=== PATIENT | male | born 1950 | race Hispanic/Latino ===

== ENCOUNTER 2019-09-07 01:42 | Inpatient (IN) | payer OTHER ==
[~2019-09-07] VITALS: Ht 177.8 cm; Wt 116.4 kg
[2019-09-07] VITALS (31 sets, daily range): BP systolic 90–130; BP diastolic 38–96
[2019-09-07] MEDS ORDERED: NITROGLYCERIN 2 MG/VIAL VIAL IV ONE (02:00)
[2019-09-07] MEDS ORDERED: ATROPINE SULFATE 0.1 MG/ML 10 ML SYG IVP ONE (02:00)
[2019-09-07] MEDS ORDERED: IOHEXOL-350 50ML VIAL IV ONE (02:00)
[2019-09-07] MEDS ORDERED: HEPARIN SODIUM 1000UNIT/ML 10ML VIAL ONE (02:00)
[2019-09-07] MEDS ORDERED: SODIUM BICARB 50MEQ 50ML VIAL ONE (02:00)
[2019-09-07] MEDS ORDERED: IOHEXOL 350 MG/ML 100ML INFUS..BTL IV ONE (02:01)
[2019-09-07] MEDS ORDERED: LIDOCAINE HCL 2% 20ML ONE (02:01)
[2019-09-07] MEDS ORDERED: DOPAMINE HCL 400 MG/D5%-WATER 0 ML IV ONE (02:01)
[2019-09-07] MEDS ORDERED: NOREPINEPHRINE BITARTRATE 1 MG/1 ML ML IV ONE (03:01)
[2019-09-07 03:13] LABS: ABG BASE EXCESS -6.1 mmol/L (-2.0-3.0); ABG HCO3 20.3 mmol/L (21.0-28.0); ABG OXYGEN SATURATION 98.9 % (95.0-99.0); ABG PCO2 44 mmHg (35-48)
[2019-09-07] MEDS ORDERED: CLOPIDOGREL BISULFATE 300 MG TAB ONE (03:22)
[2019-09-07] MEDS ORDERED: NOREPINEPHRINE 4MG/NS 250ML 250 ML IV PRN (03:45)
--- NOTE | 2019-09-07 04:40 | NUR ---
ADMIT 0410 RECEIVED REPORT FROM DENNY WRIGHT RN FROM [facility] 0440 PT ADMIT RM 215 O2 2LNS ON LEVOPHED AT 0.05 MCG/KG/MIN PT IN NO APPARENT DISTRESS AT THIS TIME HOSPITALIST [facility] WEEKS AT BEDSIDE ASSESSING PT. NEW ORDERS INPUT INTO SYSTEM. ADMISSION DATABASE COMPLETE. DAUGHTER CHRISTIAN BROWN AT BEDSIDE. WILL CONTINUE TO MONITOR PT.
[2019-09-07] MEDS ORDERED: MORPHINE SULFATE 2 MG/ML 1ML SYG IVP PRN (05:15)
[2019-09-07] MEDS ORDERED: ONDANSETRON HCL 4 MG/2 ML VIAL IVP PRN (05:15)
[2019-09-07] MEDS: INSULIN HUMULIN R 100 UNIT/ML 3ML SQ SCH ×3 (06:00→16:36)
[2019-09-07 06:03] LABS: BASOPHILS % (AUTO) 0.5 % (0.0-5.0); EOSINOPHILS % (AUTO) 0.3 % (0.0-8.0); HEMATOCRIT 35.7 % (42-54); LYMPHOCYTES % (AUTO) 8.6 % (21.0-51.0); MEAN CORPUSCULAR HEMOGLOBIN 27.6 pg (27.0-33.0); MEAN CORPUSCULAR HGB CONC 31.7 g/dL (32.0-36.0); MEAN CORPUSCULAR VOLUME 87.1 fL (79-99); MONOCYTES % (AUTO) 4.4 % (3.0-13.0); NEUTROPHILS % (AUTO) 85.8 % (40.0-77.0); PLATELET COUNT (AUTO) 178 K/uL (130-400)
[2019-09-07] MEDS: SODIUM CHLORIDE 0.9% 1000ML 1,000 ML IV SCH ×2 (06:13→14:54)
[2019-09-07 06:21] LABS: INR 1.18 (0.85-1.15); PARTIAL THROMBOPLASTIN TIME 57.8 SEC (26.3-35.5); PROTHROMBIN TIME 12.7 SEC (9.6-11.6)
[2019-09-07 06:22] LABS: CREATININE 2.1 mg/dL (0.5-1.5); POTASSIUM 4.3 mmol/L (3.5-5.1)
[2019-09-07] MEDS: CLOPIDOGREL BISULFATE 75 MG TAB PO SCH ×2 (08:07→08:10)
[2019-09-07] MEDS: ASPIRIN 81MG TAB.CHEW PO SCH (08:07)
[2019-09-07] MEDS: METOPROLOL TARTRATE 25 MG TAB PO SCH ×2 (08:07→21:23)
[2019-09-07] MEDS ORDERED: MAG HYDROX/AL HYDROX/SIMETH ES 30 ML SUSP UDCUP PO PRN (08:45)
[2019-09-07] MEDS: LACTULOSE 20 GM/30 ML UDCUP PO PRN ×2 (11:48→18:06)
[2019-09-07 15:16] LABS: APPEARANCE,URINE Clear (CLEAR); BILIRUBIN,URINE Negative (NEGATIVE); COLOR,URINE Yellow (YELLOW); GLUCOSE, URINE (UA) Negative (NEGATIVE); KETONES,URINE Negative (NEGATIVE); LEUKOCYTE ESTERASE ,URINE Trace (NEGATIVE); NITRATE,URINE Negative (NEGATIVE); OCCULT BLOOD,URINE Small (NEGATIVE); PH,URINE 5.5 (5.0-8.0); PROTEIN,URINE Trace mg/dL (NEGATIVE)
[2019-09-07 15:20] LABS: CREATININE,URINE RANDOM 130 mg/dL (30-135); PROTEIN,URINE RANDOM 30.6 mg/dL (0-11.9)
[2019-09-07 15:23] LABS: RBC,URINE 0-1 /HPF (0-1)
[2019-09-07 15:24] LABS: BACTERIA,URINE Rare /HPF (None Seen); SQUAMOUS EPITHELIAL CELL,UR Few /HPF (0-2)
[2019-09-07] MEDS: DOCUSATE SODIUM 100 MG CAP PO SCH (15:44)
[2019-09-07 18:23] LABS: TROPONIN I 94.55 ng/mL (0.00-0.06)
[2019-09-07] MEDS ORDERED: TAMS-1 PO (19:00)
[2019-09-07] MEDS ORDERED: ATOR10TA69 PO (19:00)
[2019-09-07] MEDS ORDERED: TRAM100T40 PO (19:00)
[2019-09-07] MEDS ORDERED: LIRA0.6P SQ (19:00)
[2019-09-07] MEDS ORDERED: AMLO1CAP2 PO (19:00)
[2019-09-07] MEDS ORDERED: ASPI-1197 PO (19:00)
[2019-09-07] MEDS ORDERED: INSLAN SQ (19:00)
[2019-09-07] MEDS: ATORVASTATIN CALCIUM 40 MG TABLET PO SCH (21:20)
[2019-09-08] VITALS (17 sets, daily range): BP systolic 103–140; BP diastolic 62–92
[2019-09-08] MEDS: SODIUM CHLORIDE 0.9% 1000ML 1,000 ML IV SCH (00:35)
[2019-09-08 03:54] LABS: BASOPHILS % (AUTO) 0.6 % (0.0-5.0); EOSINOPHILS % (AUTO) 1.3 % (0.0-8.0); HEMATOCRIT 32.1 % (42-54); LYMPHOCYTES % (AUTO) 14.2 % (21.0-51.0); MEAN CORPUSCULAR HEMOGLOBIN 28.2 pg (27.0-33.0); MEAN CORPUSCULAR HGB CONC 31.2 g/dL (32.0-36.0); MEAN CORPUSCULAR VOLUME 90.7 fL (79-99); MONOCYTES % (AUTO) 8.6 % (3.0-13.0); PLATELET COUNT (AUTO) 142 K/uL (130-400); RED BLOOD CELL COUNT(AUTO) 3.54 MIL/uL (4.50-6.20); RED CELL DISTRIBUTION WIDTH 15.2 % (11.0-15.5); WHITE BLOOD COUNT (AUTO) 11.9 K/uL (4.8-10.8)
[2019-09-08 04:19] LABS: B-TYPE NATRIURETIC PEPTIDE 343 pg/mL (0-100)
[2019-09-08 04:33] LABS: CREATININE 1.7 mg/dL (0.5-1.5); MAGNESIUM 2.1 mg/dL (1.80-2.40); PHOSPHORUS 3.3 mg/dL (2.5-4.9); POTASSIUM 3.9 mmol/L (3.5-5.1); THYROID STIMULATING HORMONE 0.5 uIU/mL (0.36-3.74)
[2019-09-08 04:41] LABS: HEMOGLOBIN A1C 6.7 % (4.0-6.0)
[2019-09-08] MEDS: INSULIN HUMULIN R 100 UNIT/ML 3ML SQ SCH ×5 (06:00→21:00)
[2019-09-08 07:42] LABS: ABG BASE EXCESS -3.1 mmol/L (-2.0-3.0); ABG OXYGEN SATURATION 93.3 % (95.0-99.0); ABG PCO2 31 mmHg (35-48)
[2019-09-08] MEDS: DOCUSATE SODIUM 100 MG CAP PO SCH (07:53)
[2019-09-08] MEDS: CLOPIDOGREL BISULFATE 75 MG TAB PO SCH (08:32)
[2019-09-08] MEDS: METOPROLOL TARTRATE 25 MG TAB PO SCH ×2 (08:32→20:57)
[2019-09-08] MEDS: ASPIRIN 81MG TAB.CHEW PO SCH (08:33)
[2019-09-08 09:48] LABS: TROPONIN I 57.95 ng/mL (0.00-0.06)
[2019-09-08] MEDS ORDERED: SODIUM CHLORIDE 0.9% 1000ML 1,000 ML IV ONE (11:03)
--- NOTE | 2019-09-08 14:48 | NUR ---
Report for transfer to P[facility]U Report to otf [facility] nurse for pt transfer to PCCU rm 417. All questions answered.
--- NOTE | 2019-09-08 15:00 | NUR ---
TRANSFER FROM 2ND FLOOR. PT RESTING, IN BED ,DAUGHTER AT THE BEDSIDE, REVIEW . PLAN OF CARE. AND CALL LIGHT .RT AND LT GROIN , ASSESSMENT . LT GROIN WITH NO HEMATOMA NOTED. BED LEVEL DOWN ,AND CALL LIGHT IN REACH..
--- NOTE | 2019-09-08 16:27 | NUR ---
DC PLAN VISITED WITH PATIENT. PATIENT LIVES WITH DAUGHTER. INDEPENDENT ABLE TO PERFORM ADL'S. PATIENT HAS NO SERVICES OR DME'S. FEELS SAFE TO RETURN HOME. PATIENT DICKENS TRANSFER S/P CARDIAC ARREST. Addendum: 09/08/19 at 1630 by NELSON COBURN RN CM Amended: Links added.
[2019-09-08] MEDS: ATORVASTATIN CALCIUM 40 MG TABLET PO SCH (20:57)
[2019-09-09] VITALS: BP 123/77
[2019-09-09 04:00] VITALS: BP 126/74
[2019-09-09 04:28] LABS: BASOPHILS % (AUTO) 0.6 % (0.0-5.0); EOSINOPHILS % (AUTO) 3.5 % (0.0-8.0); HEMATOCRIT 32.5 % (42-54); LYMPHOCYTES % (AUTO) 14.4 % (21.0-51.0); MEAN CORPUSCULAR HEMOGLOBIN 27.4 pg (27.0-33.0); MEAN CORPUSCULAR HGB CONC 31.1 g/dL (32.0-36.0); MEAN CORPUSCULAR VOLUME 88.3 fL (79-99); NEUTROPHILS % (AUTO) 72.3 % (40.0-77.0); PLATELET COUNT (AUTO) 139 K/uL (130-400); RED BLOOD CELL COUNT(AUTO) 3.68 MIL/uL (4.50-6.20); RED CELL DISTRIBUTION WIDTH 15.2 % (11.0-15.5); WHITE BLOOD COUNT (AUTO) 12.8 K/uL (4.8-10.8)
[2019-09-09 04:58] LABS: BILIRUBIN,TOTAL 0.6 mg/dL (0.2-1.0); CREATININE 1.6 mg/dL (0.5-1.5); MAGNESIUM 1.9 mg/dL (1.80-2.40); PHOSPHORUS 3.2 mg/dL (2.5-4.9); POTASSIUM 3.6 mmol/L (3.5-5.1); TOTAL PROTEIN, SERUM 6.3 g/dL (6.0-8.3)
[2019-09-09 05:15] LABS: % IRON SATURATION 12.6 % (30-44)
[2019-09-09] MEDS: INSULIN HUMULIN R 100 UNIT/ML 3ML SQ SCH (06:11)
--- NOTE | 2019-09-09 07:30 | NUR ---
ASSESSMENT ENCOUNTERED PT A&OX3, CALM COOPERATIVE AND DOES NOT APPEAR TO BE IN ANY DISTRESS NOR ANY NEURO DEFICITS PRESENT. RT GROIN SOFT NONTENDER WITH NO OOZING OR HEMATOMA PRESENT, DP/PT PULSES PALPABLE. PT IS AMBULATORY, GAIT STEADY AND STRONG WITH STAND BY ASSIST, CALL LIGHT WITHIN REACH.
[2019-09-09 08:06] VITALS: BP 120/71
[2019-09-09] MEDS: ASPIRIN 81MG TAB.CHEW PO SCH (08:38)
[2019-09-09] MEDS: CLOPIDOGREL BISULFATE 75 MG TAB PO SCH (08:38)
[2019-09-09] MEDS: METOPROLOL TARTRATE 25 MG TAB PO SCH (08:38)
[2019-09-09] MEDS: DOCUSATE SODIUM 100 MG CAP PO SCH (08:39)
[2019-09-09] MEDS ORDERED: CLOP75TA14 PO (10:37)
[2019-09-09] MEDS ORDERED: METO-408 PO (10:38)
[2019-09-09] MEDS ORDERED: LISI-617 PO (10:44)
--- NOTE | 2019-09-09 12:00 | NUR ---
DISCHARGE INSTRUCTIONS GIVEN, PIV REMOVED AND INTACT, DISCHARGED HOME TO FAMILY VEHICLE VIA WHEELCHAIR.
== END 2019-09-09 12:42 | disposition home or self-care (01) | DRG 246 ==
LOC: 2CH 02:06 → 4CH 09-08 15:03
PROVIDERS: ADMIT Internal Medicine; ATTEND Internal Medicine
PROC: 027034Z Dilation of Coronary Artery, One Artery with Drug-eluting Intraluminal Device, Percutaneous Approach (ICD-10-PCS; principal; 2019-09-07)
PROC: 02C03ZZ Extirpation of Matter from Coronary Artery, One Artery, Percutaneous Approach (ICD-10-PCS; 2019-09-07)
PROC: 4A023N7 Measurement of Cardiac Sampling and Pressure, Left Heart, Percutaneous Approach (ICD-10-PCS; 2019-09-07)
PROC: B2111ZZ Fluoroscopy of Multiple Coronary Arteries using Low Osmolar Contrast (ICD-10-PCS; 2019-09-07)
PROC: 5A12012 Performance of Cardiac Output, Single, Manual (ICD-10-PCS; 2019-09-07)
PROC: 5A2204Z Restoration of Cardiac Rhythm, Single (ICD-10-PCS; 2019-09-07)
DX: I21.19 ST elevation (STEMI) myocardial infarction involving other coronary artery of inferior wall (principal); I49.01 Ventricular fibrillation; I47.2 Ventricular tachycardia; N17.9 Acute kidney failure, unspecified; D64.9 Anemia, unspecified; D72.829 Elevated white blood cell count, unspecified; E11.22 Type 2 diabetes mellitus with diabetic chronic kidney disease; E66.9 Obesity, unspecified; E78.00 Pure hypercholesterolemia, unspecified; E78.5 Hyperlipidemia, unspecified; I12.9 Hypertensive chronic kidney disease with stage 1 through stage 4 chronic kidney disease, or unspecified chronic kidney disease; I25.10 Atherosclerotic heart disease of native coronary artery without angina pectoris; E78.6 Lipoprotein deficiency; N18.2 Chronic kidney disease, stage 2 (mild); Z68.36 Body mass index [BMI] 36.0-36.9, adult; I25.2 Old myocardial infarction; Z87.891 Personal history of nicotine dependence
CPT/HCPCS: 36415; 71045; 76770; 80048; 80053; 80061; 81001; 82435; 82550; 82570; 82803; 82947; 82948; 83036; 83540; 83550; 83605; 83735; 83874; 83880; 84100; 84132; 84156; 84295; 84443; 84484; 85018; 85025; 85347; 85610; 85730; 92950; 93005; 93306; 93356; 93458; C1725; C1760; C1769; C1887; C1894; C9606; G0378; J0461; J1265; J1644; J3490; J7030; Q9967

== ENCOUNTER → 2020-04-26 | Outpatient (CLI) | payer OTHER ==
[~2020-04-26] MED LIST: ASPI-1197 PO; ATOR10TA69 PO; CLOP75TA14 PO; INSLAN SQ; IOHEXOL 350 MG/ML 100ML INFUS..BTL IV ONE; LIRA0.6P SQ; LISI-809 PO; METO-408 PO; TAMS-1 PO; TRAM100T40 PO
== END | disposition home or self-care (01) ==
LOC: RAH 08:43
PROVIDERS: ATTEND Internal Medicine Cardiovascular Disease
DX: N28.1 Cyst of kidney, acquired (principal); N40.0 Benign prostatic hyperplasia without lower urinary tract symptoms; I70.0 Atherosclerosis of aorta; K55.1 Chronic vascular disorders of intestine; I70.1 Atherosclerosis of renal artery
CPT/HCPCS: 74175; Q9967; 74174

== ENCOUNTER → 2023-03-04 | Outpatient (CLI) | payer OTHER ==
[~2023-03-04] MED LIST changes: +CLOP-31 PO; -CLOP75TA14 PO; -IOHEXOL 350 MG/ML 100ML INFUS..BTL IV ONE; -LISI-809 PO; +LISI5TAB21 PO
== END | disposition home or self-care (01) ==
LOC: SHCH 15:05
PROVIDERS: ATTEND Internal Medicine Cardiovascular Disease
DX: I35.8 Other nonrheumatic aortic valve disorders (principal); I11.9 Hypertensive heart disease without heart failure; I25.10 Atherosclerotic heart disease of native coronary artery without angina pectoris; E78.5 Hyperlipidemia, unspecified
CPT/HCPCS: 93306

== ENCOUNTER → 2023-03-25 | Outpatient (CLI) | payer OTHER ==
[2023-03-25 16:32] LABS: ALBUMIN 3.4 g/dL (3.5-5.0); BILIRUBIN,TOTAL 0.4 mg/dL (0.2-1.0); CREATININE 1.3 mg/dL (0.5-1.5); MAGNESIUM 2.1 mg/dL (1.80-2.40); POTASSIUM 4.3 mmol/L (3.5-5.1); TOTAL PROTEIN, SERUM 7.5 g/dL (6.0-8.3)
== END | disposition home or self-care (01) ==
LOC: LAB 15:11
PROVIDERS: ATTEND Internal Medicine Cardiovascular Disease
DX: I10 Essential (primary) hypertension (principal); R94.31 Abnormal electrocardiogram [ECG] [EKG]
CPT/HCPCS: 36415; 80053; 83735; 83880

== ENCOUNTER → 2023-04-20 | Outpatient (CLI) | payer OTHER ==
[~2023-04-20] MED LIST changes: +REGADENOSON 0.4 MG/5 ML PF SYG IVP ONE
== END | disposition home or self-care (01) ==
LOC: SHCH 08:44
PROVIDERS: ATTEND Internal Medicine Cardiovascular Disease
DX: I25.10 Atherosclerotic heart disease of native coronary artery without angina pectoris (principal)
CPT/HCPCS: 78452; 93017; J2785; A9500 ×2; 96374

== ENCOUNTER → 2023-05-12 | Outpatient (CLI) | payer OTHER, MEDICARE ==
[~2023-05-12] VITALS: Ht 177.8 cm; Wt 102.6 kg
[~2023-05-12] MED LIST changes: +ATOR20TA65 PO; +DUTA0.5C37 PO; +MIRA25TA PO; +NALO4SPR NS; +OXYC10TA48 PO; +PHARMACY COMMUNICATION MISC SCH; -REGADENOSON 0.4 MG/5 ML PF SYG IVP ONE; +TELM1TAB PO; +VITAD50000 PO
[2023-05-12 13:41] LABS: BASOPHILS # (AUTO) 0.06 K/uL (0.00-0.20); BASOPHILS % (AUTO) 0.7 % (0.0-5.0); EOSINOPHILS # (AUTO) 0.62 K/uL (0.00-0.70); EOSINOPHILS % (AUTO) 7.7 % (0.0-8.0); HEMATOCRIT 37.7 % (42-54); IMMATURE GRANULOCYTE ABSOLUTE 0.02 K/uL (0-1); LYMPHOCYTES # (AUTO) 1.4 K/uL (1.0-4.8); LYMPHOCYTES % (AUTO) 17.3 % (21.0-51.0); MEAN CORPUSCULAR HGB CONC 31.6 g/dL (32.0-36.0); MEAN CORPUSCULAR VOLUME 91.7 fL (79-99); MONOCYTES # (AUTO) 0.9 K/uL (0.1-1.0); MONOCYTES % (AUTO) 11.2 % (3.0-13.0); NEUTROPHILS # (AUTO) 5.1 K/uL (1.8-7.7); NEUTROPHILS % (AUTO) 62.9 % (40.0-77.0); PLATELET COUNT (AUTO) 174 K/uL (130-400); RED BLOOD CELL COUNT(AUTO) 4.11 MIL/uL (4.50-6.20); RED CELL DISTRIBUTION WIDTH 13.9 % (11.0-15.5); WHITE BLOOD COUNT (AUTO) 8.1 K/uL (4.8-10.8)
[2023-05-12 13:46] LABS: CREATININE 1.3 mg/dL (0.5-1.5); POTASSIUM 4.6 mmol/L (3.5-5.1)
[2023-05-12 13:49] LABS: INR 1.14 (0.85-1.15); PROTHROMBIN TIME 13.1 SEC (9.6-11.6)
[2023-05-12 13:50] LABS: PARTIAL THROMBOPLASTIN TIME 28.5 SEC (26.3-35.5)
[2023-05-12 13:58] LABS: APPEARANCE,URINE CLEAR (CLEAR); BILIRUBIN,URINE NEGATIVE (NEGATIVE); COLOR,URINE YELLOW (YELLOW); GLUCOSE, URINE (UA) NEGATIVE (NEGATIVE); KETONES,URINE NEGATIVE (NEGATIVE); LEUKOCYTE ESTERASE ,URINE NEGATIVE Leu/uL (NEGATIVE); NITRATE,URINE NEGATIVE (NEGATIVE); OCCULT BLOOD,URINE NEGATIVE (NEGATIVE); PROTEIN,URINE 10 mg/dL (NEGATIVE)
[2023-05-12 14:01] LABS: ADD UA MICROSCOPIC YES
[2023-05-12 14:02] LABS: MUCUS,URINE RARE LPF (None Seen); RBC,URINE 0-1 /HPF (0-1); SQUAMOUS EPITHELIAL CELL,UR RARE /HPF (0-2); WBC,URINE 0-1 /HPF (0-1)
[2023-05-12 14:04] VITALS: BP 146/75; PULSE 64; RESP 18
[2023-05-12 14:12] LABS: B-TYPE NATRIURETIC PEPTIDE 61 pg/mL (0-100)
== END | disposition home or self-care (01) ==
LOC: DAH 10:00 → EDSTATUS 13:00
PROVIDERS: ATTEND Internal Medicine Cardiovascular Disease
DX: I25.10 Atherosclerotic heart disease of native coronary artery without angina pectoris (principal); M47.814 Spondylosis without myelopathy or radiculopathy, thoracic region; D65 Disseminated intravascular coagulation [defibrination syndrome]
CPT/HCPCS: 36415; 71045; 80048; 81001; 83880; 85025; 85610; 85730; 93005

== ENCOUNTER 2023-06-10 05:40 | Day surgery (SDC) | payer OTHER, MEDICARE ==
[2023-06-08 11:01] LABS: APPEARANCE,URINE CLEAR (CLEAR); BILIRUBIN,URINE NEGATIVE (NEGATIVE); COLOR,URINE YELLOW (YELLOW); GLUCOSE, URINE (UA) NEGATIVE (NEGATIVE); KETONES,URINE NEGATIVE (NEGATIVE); LEUKOCYTE ESTERASE ,URINE NEGATIVE Leu/uL (NEGATIVE); NITRATE,URINE NEGATIVE (NEGATIVE); OCCULT BLOOD,URINE NEGATIVE (NEGATIVE); PROTEIN,URINE 20 mg/dL (NEGATIVE); UROBILINOGEN,URINE 0.2 mg/dL (0.2-1.0)
[2023-06-08 11:02] LABS: BASOPHILS # (AUTO) 0.07 K/uL (0.00-0.20); BASOPHILS % (AUTO) 0.9 % (0.0-5.0); EOSINOPHILS # (AUTO) 0.45 K/uL (0.00-0.70); EOSINOPHILS % (AUTO) 5.9 % (0.0-8.0); HEMATOCRIT 37.5 % (42-54); IMMATURE GRANULOCYTE ABSOLUTE 0.02 K/uL (0-1); LYMPHOCYTES # (AUTO) 1.6 K/uL (1.0-4.8); LYMPHOCYTES % (AUTO) 20.4 % (21.0-51.0); MEAN CORPUSCULAR HEMOGLOBIN 29.1 pg (27.0-33.0); MEAN CORPUSCULAR HGB CONC 31.5 g/dL (32.0-36.0); MEAN CORPUSCULAR VOLUME 92.4 fL (79-99); MONOCYTES # (AUTO) 0.6 K/uL (0.1-1.0); MONOCYTES % (AUTO) 8.3 % (3.0-13.0); NEUTROPHILS # (AUTO) 4.9 K/uL (1.8-7.7); NEUTROPHILS % (AUTO) 64.2 % (40.0-77.0); PLATELET COUNT (AUTO) 168 K/uL (130-400); RED BLOOD CELL COUNT(AUTO) 4.06 MIL/uL (4.50-6.20); RED CELL DISTRIBUTION WIDTH 13.8 % (11.0-15.5); WHITE BLOOD COUNT (AUTO) 7.6 K/uL (4.8-10.8)
[2023-06-08 11:04] LABS: CREATININE 1.4 mg/dL (0.5-1.5); POTASSIUM 4.2 mmol/L (3.5-5.1)
[2023-06-08 11:12] VITALS: BP 162/83; PULSE 60; RESP 20
[2023-06-08 11:13] LABS: ADD UA MICROSCOPIC YES
[2023-06-08 11:18] LABS: MUCUS,URINE RARE LPF (None Seen); SQUAMOUS EPITHELIAL CELL,UR RARE /HPF (0-2)
[2023-06-08 11:20] LABS: INR 1.15 (0.85-1.15); PROTHROMBIN TIME 13.2 SEC (9.6-11.6)
[2023-06-08 11:22] LABS: PARTIAL THROMBOPLASTIN TIME 27.8 SEC (26.3-35.5)
[2023-06-08 11:53] LABS: B-TYPE NATRIURETIC PEPTIDE 50 pg/mL (0-100)
[2023-06-10] VITALS (10 sets, daily range): BP systolic 132–154; BP diastolic 69–89; PULSE 51–61; RESP 14–18
[~2023-06-10] VITALS: Ht 172.7 cm; Wt 102.9 kg
[~2023-06-10 05:40] MED LIST changes: +ASPI-1012 PO; -ASPI-1197 PO; -ATOR10TA69 PO; -CLOP-31 PO; -LIRA0.6P SQ; -LISI5TAB21 PO; +LUBI24CA9 PO; -PHARMACY COMMUNICATION MISC SCH; +PSYL0.4C2 PO; -TRAM100T40 PO
[2023-06-10 06:19] LABS: CREATININE 1.3 mg/dL (0.5-1.5); POTASSIUM 3.9 mmol/L (3.5-5.1)
[2023-06-10] MEDS: 0.9%NACL 1000ML 1,000 ML IV ONE (06:22)
[2023-06-10] MEDS ORDERED: IOHEXOL-350 50ML VIAL IV ONE (07:09)
[2023-06-10] MEDS ORDERED: LIDOCAINE HCL 400MG/20ML VIAL ONE (07:09)
[2023-06-10] MEDS ORDERED: IOHEXOL 350 MG/ML 100ML INFUS..BTL IV ONE (07:09)
[2023-06-10] MEDS ORDERED: NITROGLYCERIN 50MG VIAL ONE (07:09)
[2023-06-10] MEDS ORDERED: HEPARIN 10,000 UNIT/10ML (1,000 UNIT/ML) VIAL ONE (07:09)
[2023-06-10] MEDS ORDERED: NICARDIPINE 25MG INJ IV ONE (07:11)
[2023-06-10] MEDS ORDERED: MEPERIDINE-PF 25 MG/ML SYG ONE (07:26)
[2023-06-10] MEDS ORDERED: MIDAZOLAM HCL 1 MG/ML 2ML VIAL ONE (07:26)
[2023-06-10] MEDS ORDERED: GLUCAGON 1MG KIT 1 MG ML IM PRN (09:00)
[2023-06-10] MEDS ORDERED: DEXTROSE 50%-WATER 50 ML DISP.SYRIN IV PRN (09:00)
[2023-06-10] MEDS ORDERED: 0.9%NACL 1000ML 1,000 ML IV SCH (09:00)
[2023-06-10] MEDS ORDERED: INSULIN HUMULIN R 100 UNIT/ML 3ML SQ SCH (11:30)
== END 2023-06-10 13:05 | disposition home or self-care (01) ==
LOC: DAH 05:40
PROVIDERS: ATTEND Internal Medicine Cardiovascular Disease
DX: I25.119 Atherosclerotic heart disease of native coronary artery with unspecified angina pectoris (principal); I13.0 Hypertensive heart and chronic kidney disease with heart failure and stage 1 through stage 4 chronic kidney disease, or unspecified chronic kidney disease; N18.30 Chronic kidney disease, stage 3 unspecified; I50.42 Chronic combined systolic (congestive) and diastolic (congestive) heart failure; I25.5 Ischemic cardiomyopathy; I44.0 Atrioventricular block, first degree; I49.01 Ventricular fibrillation; I21.9 Acute myocardial infarction, unspecified; Z79.899 Other long term (current) drug therapy; Z79.01 Long term (current) use of anticoagulants; Z79.82 Long term (current) use of aspirin; Z98.890 Other specified postprocedural states; Z95.5 Presence of coronary angioplasty implant and graft
CPT/HCPCS: 80048 ×2; 83880; 85025; 85610; 85730; 81001; 36415 ×2; 71045; 93005; 93458; 93571; 93572; 82948 ×2; C1769 ×2; C1894 ×3; A4649; C1887 ×2; J3490 ×3; J7030; J1644 ×2; J2250; J2175; Q9967; A4215; A4222; A4221; A4663; A4216; A4606; Q9965 ×2; A4223 ×3; 96360; 96361; 99156; 99157

== ENCOUNTER 2023-07-02 13:00 | Inpatient (IN) | payer OTHER, MEDICARE ==
[~2023-07-02] VITALS: Ht 177.8 cm; Wt 103.9 kg
[2023-07-06 08:33] LABS: BASOPHILS # (AUTO) 0.04 K/uL (0.00-0.20); BASOPHILS % (AUTO) 0.5 % (0.0-5.0); EOSINOPHILS # (AUTO) 0.51 K/uL (0.00-0.70); EOSINOPHILS % (AUTO) 6.5 % (0.0-8.0); HEMATOCRIT 38.3 % (42-54); IMMATURE GRANULOCYTE ABSOLUTE 0.02 K/uL (0-1); LYMPHOCYTES # (AUTO) 1.3 K/uL (1.0-4.8); LYMPHOCYTES % (AUTO) 16.5 % (21.0-51.0); MEAN CORPUSCULAR HEMOGLOBIN 29.3 pg (27.0-33.0); MEAN CORPUSCULAR HGB CONC 32.1 g/dL (32.0-36.0); MEAN CORPUSCULAR VOLUME 91.2 fL (79-99); MONOCYTES # (AUTO) 0.6 K/uL (0.1-1.0); MONOCYTES % (AUTO) 7.3 % (3.0-13.0); NEUTROPHILS # (AUTO) 5.4 K/uL (1.8-7.7); NEUTROPHILS % (AUTO) 68.9 % (40.0-77.0); PLATELET COUNT (AUTO) 172 K/uL (130-400); RED CELL DISTRIBUTION WIDTH 14.1 % (11.0-15.5); WHITE BLOOD COUNT (AUTO) 7.8 K/uL (4.8-10.8)
[2023-07-06 08:36] VITALS: BP 178/87; PULSE 59; RESP 17
[2023-07-06 08:42] LABS: HEMOGLOBIN A1C 6.6 % (4.0-6.0)
[2023-07-06 08:45] LABS: INR 1.14 (0.85-1.15); PROTHROMBIN TIME 13.3 SEC (9.6-11.6)
[2023-07-06 08:46] LABS: PARTIAL THROMBOPLASTIN TIME 29.3 SEC (26.3-35.5)
[2023-07-06 08:50] LABS: ALBUMIN 3.7 g/dL (3.5-5.0); BILIRUBIN,TOTAL 0.5 mg/dL (0.2-1.0); CREATININE 1.4 mg/dL (0.5-1.3); POTASSIUM 3.7 mmol/L (3.5-5.1); TOTAL PROTEIN, SERUM 7.9 g/dL (6.0-8.3)
[2023-07-06 08:50] LABS: ABG HCO3 24.5 mmol/L (21.0-28.0); ABG OXYGEN SATURATION 94.7 % (95.0-99.0); ABG PCO2 39 mmHg (35-48); ABG PH 7.413 (7.35-7.450); CARBON MONOXIDE 0.3; DEVICE COMMENT RR RA; HHb 5.3; PO2, ARTERIAL BG 76.5 mmHg (83.0-108.0)
[2023-07-06 09:12] LABS: B-TYPE NATRIURETIC PEPTIDE 72 pg/mL (0-100)
[2023-07-07] VITALS (31 sets, daily range): BP systolic 88–157; BP diastolic 41–116; PULSE 40–99; RESP 10–20; TEMP 97.8; O2SAT 97–100
[2023-07-07] MEDS: 0.9%NACL 1000ML 1,000 ML IV ONE (10:55)
[2023-07-07] MEDS ORDERED: MIDAZOLAM HCL 1 MG/ML 2ML VIAL ONE ×2 (15:45→15:55)
[2023-07-07] MEDS ORDERED: NOREPINEPHRINE BITARTRATE 1 MG/1 ML ML IV ONE (15:55)
[2023-07-07] MEDS ORDERED: PROTAMINE SULFATE 10 MG/ML 25ML VIAL IV ONE (15:55)
[2023-07-07] MEDS ORDERED: FENTANYL CITRATE PF 50 MCG/1 ML 20ML VIAL IJ ONE (15:55)
[2023-07-07] MEDS ORDERED: EPINEPHRINE PF 1MG (1:1,000) 1 MG/ML AMP ONE (15:55)
[2023-07-07] MEDS ORDERED: PROPOFOL 10 MG/ML 20ML VIAL IV ONE (15:55)
[2023-07-07] MEDS ORDERED: LIDOCAINE PF 100MG/5ML (2%) SYRINGE 5ML ONE (15:55)
[2023-07-07] MEDS ORDERED: SODIUM BICARB 50MEQ 50ML VIAL 200 ML ONE (15:55)
[2023-07-07] MEDS ORDERED: ROCURONIUM BROMIDE 10MG/1ML 5ML VL ONE (15:56)
[2023-07-07] MEDS ORDERED: KETAMINE 50MG/ML SYRINGE 50 MG/ML DISP.SYRIN ONE ×2 (15:56→18:35)
[2023-07-07] MEDS ORDERED: MAGNESIUM HYDROXIDE 30 ML/UDCUP PO PRN (16:00)
[2023-07-07] MEDS ORDERED: ALBUMIN (HUMAN) 5% 250 ML IV PRN (16:00)
[2023-07-07] MEDS: 0.9%NACL 1000ML 1,000 ML IV SCH (16:00)
[2023-07-07] MEDS ORDERED: AMINOCAPROIC ACID 5,000MG VIAL 15,000 MG in 0.9% NACL 250ML 250 ML IV SCH (16:00)
[2023-07-07] MEDS: CEFAZOLIN SODIUM 2 GM VIAL ONE (16:00)
[2023-07-07] MEDS ORDERED: MORPHINE 2 MG SYG IV PRN (16:00)
[2023-07-07] MEDS ORDERED: POTASSIUM PHOS 15 mMOL+NS250ML 250 ML IV PRN (16:00)
[2023-07-07] MEDS ORDERED: GLUCAGON 1MG KIT 1 MG ML IM PRN (16:00)
[2023-07-07] MEDS ORDERED: DEXTROSE 50%-WATER 50 ML DISP.SYRIN IV PRN (16:00)
[2023-07-07] MEDS ORDERED: LACTULOSE 20 GM/30 ML UDCUP PO PRN (16:00)
[2023-07-07] MEDS ORDERED: ACETAMINOPHEN 650 MG SUPPOSITORY RC PRN (16:00)
[2023-07-07] MEDS ORDERED: 0.9% NACL 500ML IV.SOLN 500 ML IV SCH (16:00)
[2023-07-07] MEDS ORDERED: 0.9%NACL 10ML VIAL IVP PRN (16:00)
[2023-07-07] MEDS ORDERED: EPINEPHRINE PF 1MG (1:1,000) 10 MG in 0.9% NACL 250ML 240 ML IV PRN (16:00)
[2023-07-07] MEDS ORDERED: MAGNESIUM 2GM PREMIX 50ML 50 ML IV PRN (16:00)
[2023-07-07] MEDS ORDERED: ACETAMINOPHEN 325 MG TAB PO PRN (16:00)
[2023-07-07] MEDS ORDERED: NOREPINEPHRIN 8MG/250ML NS 250 ML IV PRN (16:30)
[2023-07-07 16:33] LABS: ABG HCO3 21.6 mmol/L (21.0-28.0); ABG OXYGEN SATURATION 99.1 % (95.0-99.0); ABG PCO2 37 mmHg (35-48); ABG PH 7.383 (7.35-7.450); CARBON MONOXIDE 0.3; DEVICE COMMENT 1; HHb 0.9; PO2, ARTERIAL BG 241.8 mmHg (83.0-108.0)
[2023-07-07] MEDS ORDERED: HEPARIN 10,000 UNIT/10ML (1,000 UNIT/ML) VIAL ONE (16:39)
[2023-07-07] MEDS: CEFAZOLIN SODIUM 1 GM VIAL ONE (17:06)
[2023-07-07] MEDS: PAPAVERINE HCL 30 MG/ML 2ML VIAL ONE (17:08)
[2023-07-07 17:27] LABS: ABG BASE EXCESS 2.3 mmol/L (-2.0-3.0); ABG HCO3 27.5 mmol/L (21.0-28.0); ABG PCO2 46 mmHg (35-48); ABG PH 7.399 (7.35-7.450); CARBON MONOXIDE 0.3; DEVICE COMMENT 2
[2023-07-07 18:26] LABS: ABG BASE EXCESS -7.7 mmol/L (-2.0-3.0); ABG HCO3 18.4 mmol/L (21.0-28.0); ABG OXYGEN SATURATION 99.1 % (95.0-99.0); ABG PCO2 40 mmHg (35-48); ABG PH 7.284 (7.35-7.450); CARBON MONOXIDE 0.3; DEVICE COMMENT 3; HHb 0.9; PO2, ARTERIAL BG 254.1 mmHg (83.0-108.0)
[2023-07-07] MEDS ORDERED: SODIUM BICARB 50MEQ 50ML VIAL 150 ML ONE (18:27)
[2023-07-07] MEDS ORDERED: POTASSIUM CHLORIDE 20MEQ/100ML 100 ML IV ONE ×2 (18:29→19:06)
[2023-07-07] MEDS ORDERED: EPHEDRINE SULFATE 50 MG/ML AMPULE ONE (18:53)
[2023-07-07] MEDS ORDERED: VASOPRESSIN 20 UNITS/ML 1ML VIAL ONE (19:02)
[2023-07-07 19:04] LABS: ABG BASE EXCESS -4.5 mmol/L (-2.0-3.0); ABG HCO3 20.7 mmol/L (21.0-28.0); ABG OXYGEN SATURATION 98.5 % (95.0-99.0); ABG PCO2 38 mmHg (35-48); ABG PH 7.351 (7.35-7.450); CARBON MONOXIDE 0.3; DEVICE COMMENT 4; HHb 1.5; PO2, ARTERIAL BG 156.9 mmHg (83.0-108.0)
[2023-07-07] MEDS ORDERED: SODIUM BICARB 50MEQ 50ML VIAL 100 ML ONE (19:06)
[2023-07-07 19:49] LABS: ABG BASE EXCESS -5.4 mmol/L (-2.0-3.0); ABG HCO3 21.9 mmol/L (21.0-28.0); ABG OXYGEN SATURATION 95.9 % (95.0-99.0); ABG PCO2 51 mmHg (35-48); ABG PH 7.248 (7.35-7.450); CARBON MONOXIDE 0.1; DEVICE COMMENT A LINE; HHb 4.1; PO2, ARTERIAL BG 102.3 mmHg (83.0-108.0)
[2023-07-07] MEDS ORDERED: VASOPRESSIN 20 UNITS in 0.9%NACL 100ML 99 ML IV PRN (20:00)
[2023-07-07] MEDS ORDERED: VASOPRESSIN 40 UNITS in 0.9%NACL 50ML 40 ML IV SCH (20:00)
[2023-07-07 20:17] LABS: INR 1.31 (0.85-1.15); PROTHROMBIN TIME 15.1 SEC (9.6-11.6)
[2023-07-07 20:21] LABS: HEMATOCRIT 30.4 % (42-54); MEAN CORPUSCULAR HEMOGLOBIN 29.3 pg (27.0-33.0); MEAN CORPUSCULAR HGB CONC 32.6 g/dL (32.0-36.0); MEAN CORPUSCULAR VOLUME 89.9 fL (79-99); NUCLEATED RED BLOOD CELLS 0.1 % (0.0-0.19); PLATELET COUNT (AUTO) 146 K/uL (130-400); RED BLOOD CELL COUNT(AUTO) 3.38 MIL/uL (4.50-6.20); RED CELL DISTRIBUTION WIDTH 14.2 % (11.0-15.5)
[2023-07-07 20:24] LABS: CREATININE 1.5 mg/dL (0.5-1.3); MAGNESIUM 1.7 mg/dL (1.80-2.40); PHOSPHORUS 4.4 mg/dL (2.5-4.9); POTASSIUM 3.3 mmol/L (3.5-5.1); WHITE BLOOD COUNT (AUTO) 30.5 K/uL (4.8-10.8)
[2023-07-07] MEDS: SODIUM BICARB 50MEQ 50ML VIAL IV PRN (20:24)
[2023-07-07] MEDS: MORPHINE 4 MG SYG IV PRN (20:26)
[2023-07-07] MEDS: POTASSIUM CHLORIDE 20MEQ/100ML 100 ML IV PRN (20:27)
[2023-07-07] MEDS: INSULIN REGULAR, HUMAN 3ML 100 UNIT in 0.9%NACL 100ML 99 ML IV SCH (20:30)
[2023-07-07] MEDS: ASPIRIN 81MG CHEW TAB NG ONE (20:32)
[2023-07-07 20:48] LABS: ABG BASE EXCESS -0.1 mmol/L (-2.0-3.0); ABG HCO3 25.2 mmol/L (21.0-28.0); ABG OXYGEN SATURATION 95.1 % (95.0-99.0); ABG PCO2 44 mmHg (35-48); ABG PH 7.377 (7.35-7.450); CARBON MONOXIDE 0.3; DEVICE COMMENT A LINE; HHb 4.9; PO2, ARTERIAL BG 86.7 mmHg (83.0-108.0); VENT MODE, BG SIMV (ROOM AIR)
[2023-07-07] MEDS: ATORVASTATIN 40 MG TABLET PO SCH (21:00)
[2023-07-07] MEDS: LUBIPROSTONE 24 MCG CAP PO SCH (21:00)
[2023-07-07 21:02] LABS: BAND NEUTROPHILS % (MANUAL) 6 % (0-2); BASOPHILS % (MANUAL) 1 % (0-2); EOSINOPHILS % (MANUAL) 1 % (1-6); LYMPHOCYTES % (MANUAL) 9 % (22-44); MAN.DIFF COMMENT-IMPRESSION MANUAL DIFFERENTIAL; MONOCYTES % (MANUAL) 1 % (2-9); PLATELET MORPHOLOGY COMMENT ADEQUATE; SEGMENTED NEUTROPHILS % 82 % (40-70); TOTAL CELLS COUNTED 100; WBC MORPHOLOGY CONSISTENT W/DIFF
[2023-07-07] MEDS: DOCUSATE SODIUM 100 MG CAP PO ONE (21:03)
[2023-07-07 21:52] LABS: ABG BASE EXCESS -1.4 mmol/L (-2.0-3.0); ABG HCO3 24.5 mmol/L (21.0-28.0); ABG OXYGEN SATURATION 98.2 % (95.0-99.0); ABG PCO2 47 mmHg (35-48); CARBON MONOXIDE 0.3; DEVICE COMMENT A LINE; HHb 1.8; VENT MODE, BG SIMV (ROOM AIR)
[2023-07-07] MEDS: FAMOTIDINE 20MG VIAL IV SCH (22:25)
[2023-07-07] MEDS: ONDANSETRON 4MG INJ IV PRN (22:26)
[2023-07-07] MEDS: CEFAZOLIN SODIUM 2 GM VIAL IVPB SCH (22:26)
[2023-07-07] MEDS: TRAMADOL HCL 50 MG TABLET PO PRN (22:28)
[2023-07-07 22:51] LABS: ABG BASE EXCESS 5.2 mmol/L (-2.0-3.0); ABG OXYGEN SATURATION 97.4 % (95.0-99.0); ABG PCO2 52 mmHg (35-48); ABG PH 7.394 (7.35-7.450); CARBON MONOXIDE 0.3; DEVICE COMMENT A LINE; HHb 2.6; PO2, ARTERIAL BG 132.2 mmHg (83.0-108.0); VENT MODE, BG SIMV (ROOM AIR)
[2023-07-07] MEDS: CALCIUM GLUC 1GM 1 GM in 0.9%NACL 50ML 50 ML IV PRN (22:54)
[2023-07-07 23:48] LABS: ABG BASE EXCESS -2.8 mmol/L (-2.0-3.0); ABG HCO3 22.6 mmol/L (21.0-28.0); ABG OXYGEN SATURATION 96.6 % (95.0-99.0); ABG PCO2 42 mmHg (35-48); ABG PH 7.354 (7.35-7.450); CARBON MONOXIDE 0; DEVICE COMMENT A LINE; HHb 3.4; PO2, ARTERIAL BG 108.2 mmHg (83.0-108.0); VENT MODE, BG SIMV (ROOM AIR)
[2023-07-08] VITALS (155 sets, daily range): BP systolic 88–200; BP diastolic 48–195; PULSE 65–96; RESP 5–49; TEMP 97.3–99; O2SAT 92–100
[2023-07-08 00:49] LABS: ABG BASE EXCESS -1.7 mmol/L (-2.0-3.0); ABG HCO3 23.4 mmol/L (21.0-28.0); ABG OXYGEN SATURATION 94.2 % (95.0-99.0); ABG PCO2 41 mmHg (35-48); ABG PH 7.373 (7.35-7.450); CARBON MONOXIDE 0.1; DEVICE COMMENT A LINE; HHb 5.8; PO2, ARTERIAL BG 79.4 mmHg (83.0-108.0); VENT MODE, BG SIMV (ROOM AIR)
[2023-07-08 01:53] LABS: ABG BASE EXCESS 4.5 mmol/L (-2.0-3.0); ABG HCO3 29.2 mmol/L (21.0-28.0); ABG OXYGEN SATURATION 94.9 % (95.0-99.0); ABG PCO2 44 mmHg (35-48); ABG PH 7.436 (7.35-7.450); CARBON MONOXIDE 0.1; DEVICE COMMENT A LINE; HHb 5.1; PO2, ARTERIAL BG 79.6 mmHg (83.0-108.0); VENT MODE, BG SIMV (ROOM AIR)
[2023-07-08] MEDS: PROPOFOL 1000 MG/100 ML 100 ML IV PRN (02:34)
[2023-07-08 02:59] LABS: ABG BASE EXCESS 2.8 mmol/L (-2.0-3.0); ABG HCO3 27.4 mmol/L (21.0-28.0); ABG OXYGEN SATURATION 95.3 % (95.0-99.0); ABG PCO2 42 mmHg (35-48); ABG PH 7.433 (7.35-7.450); CARBON MONOXIDE 0.3; DEVICE COMMENT A LINE; HHb 4.7; PO2, ARTERIAL BG 84.5 mmHg (83.0-108.0); VENT MODE, BG SIMV (ROOM AIR)
[2023-07-08 03:48] LABS: ABG BASE EXCESS 2.7 mmol/L (-2.0-3.0); ABG HCO3 26.6 mmol/L (21.0-28.0); ABG OXYGEN SATURATION 96.3 % (95.0-99.0); ABG PCO2 38 mmHg (35-48); ABG PH 7.462 (7.35-7.450); CARBON MONOXIDE 0.1; DEVICE COMMENT A LINE; HHb 3.7; PO2, ARTERIAL BG 93.6 mmHg (83.0-108.0); VENT MODE, BG SIMV (ROOM AIR)
[2023-07-08 05:04] LABS: ABG HCO3 27.9 mmol/L (21.0-28.0); ABG OXYGEN SATURATION 96.1 % (95.0-99.0); ABG PCO2 39 mmHg (35-48); ABG PH 7.475 (7.35-7.450); CARBON MONOXIDE 0.3; DEVICE COMMENT A LINE; HHb 3.9; PO2, ARTERIAL BG 93.2 mmHg (83.0-108.0); VENT MODE, BG CAFM (ROOM AIR)
[2023-07-08 05:40] LABS: HEMATOCRIT 29.5 % (42-54); MEAN CORPUSCULAR HEMOGLOBIN 29.2 pg (27.0-33.0); MEAN CORPUSCULAR HGB CONC 32.2 g/dL (32.0-36.0); MEAN CORPUSCULAR VOLUME 90.8 fL (79-99); RED BLOOD CELL COUNT(AUTO) 3.25 MIL/uL (4.50-6.20); RED CELL DISTRIBUTION WIDTH 14.3 % (11.0-15.5); WHITE BLOOD COUNT (AUTO) 13.4 K/uL (4.8-10.8)
[2023-07-08 05:57] LABS: CREATININE 1.6 mg/dL (0.5-1.3); MAGNESIUM 2.2 mg/dL (1.80-2.40); PHOSPHORUS 2.5 mg/dL (2.5-4.9); POTASSIUM 4.3 mmol/L (3.5-5.1)
[2023-07-08 06:08] LABS: INR 1.23 (0.85-1.15); PROTHROMBIN TIME 14.3 SEC (9.6-11.6)
[2023-07-08 06:09] LABS: PARTIAL THROMBOPLASTIN TIME 24.1 SEC (26.3-35.5)
[2023-07-08] MEDS: NITROGLYCERIN 50MG/D5W 250ML 250 BOT IV SCH (06:50)
[2023-07-08] MEDS: ASPIRIN 81 MG EC TAB PO SCH (08:46)
[2023-07-08] MEDS: TAMSULOSIN HCL 0.4 MG CAP.ER.24H PO SCH (08:46)
[2023-07-08] MEDS: FUROSEMIDE 20MG VIAL IV SCH (08:46)
[2023-07-08] MEDS ORDERED: MORPHINE 2 MG SYG IV PRN (09:00)
[2023-07-08] MEDS: OXYCODONE HCL 5 MG TAB PO PRN (12:46)
[2023-07-08] MEDS: PSYLLIUM SEED 1 EACH PACKET PO SCH (12:47)
[2023-07-08 18:37] LABS: ABG BASE EXCESS 5.9 mmol/L (-2.0-3.0); ABG HCO3 29.9 mmol/L (21.0-28.0); ABG OXYGEN SATURATION 92.7 % (95.0-99.0); ABG PCO2 41 mmHg (35-48); ABG PH 7.477 (7.35-7.450); CARBON MONOXIDE 0.3; HHb 7.3; PO2, ARTERIAL BG 67.5 mmHg (83.0-108.0); VENT MODE, BG CAFM (ROOM AIR)
[2023-07-08] MEDS: METOPROLOL TARTRATE 25 MG TAB PO SCH (21:06)
[2023-07-09] VITALS (82 sets, daily range): BP systolic 88–180; BP diastolic 46–87; PULSE 66–84; RESP 5–27; TEMP 97.6–98.8; O2SAT 94–97
[2023-07-09 00:07] LABS: ABG BASE EXCESS 5.6 mmol/L (-2.0-3.0); ABG HCO3 29.4 mmol/L (21.0-28.0); ABG OXYGEN SATURATION 95.8 % (95.0-99.0); ABG PCO2 40 mmHg (35-48); ABG PH 7.488 (7.35-7.450); CARBON MONOXIDE 0.3; HHb 4.2
[2023-07-09 05:35] LABS: HEMATOCRIT 25.3 % (42-54); MEAN CORPUSCULAR HEMOGLOBIN 28.7 pg (27.0-33.0); MEAN CORPUSCULAR HGB CONC 31.6 g/dL (32.0-36.0); MEAN CORPUSCULAR VOLUME 90.7 fL (79-99); RED BLOOD CELL COUNT(AUTO) 2.79 MIL/uL (4.50-6.20); RED CELL DISTRIBUTION WIDTH 14.9 % (11.0-15.5); WHITE BLOOD COUNT (AUTO) 16.1 K/uL (4.8-10.8)
[2023-07-09 05:55] LABS: CREATININE 1.7 mg/dL (0.5-1.3); POTASSIUM 3.6 mmol/L (3.5-5.1)
[2023-07-09] MEDS: FUROSEMIDE 40MG VIAL IV SCH (08:19)
[2023-07-09] MEDS: FUROSEMIDE 20 MG TABLET PO SCH (08:20)
[2023-07-09] MEDS ORDERED: METOPROLOL TARTRATE 25 MG TAB PO SCH (09:00)
[2023-07-09] MEDS: INSULIN HUMULIN R 100 UNIT/ML 3ML SQ SCH (11:30)
[2023-07-09] MEDS: TRAMADOL HCL 50 MG TABLET PO PRN (21:23)
[2023-07-10] VITALS (21 sets, daily range): BP systolic 89–130; BP diastolic 36–65; PULSE 66–86; RESP 6–18; O2SAT 92–100
[2023-07-10 04:09] LABS: HEMATOCRIT 23.7 % (42-54); MEAN CORPUSCULAR HEMOGLOBIN 28.3 pg (27.0-33.0); MEAN CORPUSCULAR HGB CONC 31.6 g/dL (32.0-36.0); MEAN CORPUSCULAR VOLUME 89.4 fL (79-99); RED BLOOD CELL COUNT(AUTO) 2.65 MIL/uL (4.50-6.20); RED CELL DISTRIBUTION WIDTH 14.7 % (11.0-15.5); WHITE BLOOD COUNT (AUTO) 13.3 K/uL (4.8-10.8)
[2023-07-10 04:23] LABS: CREATININE 1.7 mg/dL (0.5-1.3); POTASSIUM 3.9 mmol/L (3.5-5.1)
[2023-07-10] MEDS: ACETAMINOPHEN 325 MG TAB PO PRN (06:26)
[2023-07-10] MEDS: ENOXAPARIN SODIUM 30 MG/0.3 ML SQ SCH (12:24)
[2023-07-11] VITALS (11 sets, daily range): BP systolic 102–124; BP diastolic 53–72; PULSE 64–78; RESP 16–21; O2SAT 96–98
[2023-07-11 05:01] LABS: HEMATOCRIT 22.9 % (42-54); MEAN CORPUSCULAR HEMOGLOBIN 29.1 pg (27.0-33.0); MEAN CORPUSCULAR HGB CONC 32.8 g/dL (32.0-36.0); MEAN CORPUSCULAR VOLUME 88.8 fL (79-99); RED BLOOD CELL COUNT(AUTO) 2.58 MIL/uL (4.50-6.20); RED CELL DISTRIBUTION WIDTH 14.5 % (11.0-15.5); WHITE BLOOD COUNT (AUTO) 10.8 K/uL (4.8-10.8)
[2023-07-11 05:36] LABS: CREATININE 1.5 mg/dL (0.5-1.3); POTASSIUM 3.4 mmol/L (3.5-5.1)
[2023-07-11] MEDS: KCL 20 MEQ ERTAB PO PRN (09:53)
[2023-07-11] MEDS: FAMOTIDINE 20MG TAB PO SCH (20:49)
[2023-07-12] VITALS (13 sets, daily range): BP systolic 105–126; BP diastolic 55–68; PULSE 65–80; RESP 16–20; O2SAT 93–97
[2023-07-12 03:46] LABS: MEAN CORPUSCULAR HEMOGLOBIN 29.2 pg (27.0-33.0); MEAN CORPUSCULAR HGB CONC 32.6 g/dL (32.0-36.0); MEAN CORPUSCULAR VOLUME 89.5 fL (79-99); RED BLOOD CELL COUNT(AUTO) 2.57 MIL/uL (4.50-6.20); RED CELL DISTRIBUTION WIDTH 14.3 % (11.0-15.5); WHITE BLOOD COUNT (AUTO) 9.9 K/uL (4.8-10.8)
[2023-07-12 04:02] LABS: CREATININE 1.4 mg/dL (0.5-1.3); POTASSIUM 3.2 mmol/L (3.5-5.1)
[2023-07-12 18:17] LABS: BASOPHILS # (AUTO) 0.05 K/uL (0.00-0.20); BASOPHILS % (AUTO) 0.5 % (0.0-5.0); EOSINOPHILS # (AUTO) 0.94 K/uL (0.00-0.70); EOSINOPHILS % (AUTO) 8.8 % (0.0-8.0); HEMATOCRIT 26.7 % (42-54); IMMATURE GRANULOCYTE ABSOLUTE 0.04 K/uL (0-1); MEAN CORPUSCULAR HEMOGLOBIN 29.3 pg (27.0-33.0); MEAN CORPUSCULAR HGB CONC 31.8 g/dL (32.0-36.0); MEAN CORPUSCULAR VOLUME 92.1 fL (79-99); MONOCYTES # (AUTO) 0.8 K/uL (0.1-1.0); MONOCYTES % (AUTO) 7.9 % (3.0-13.0); NEUTROPHILS # (AUTO) 6.8 K/uL (1.8-7.7); NEUTROPHILS % (AUTO) 63.4 % (40.0-77.0); PLATELET COUNT (AUTO) 174 K/uL (130-400); RED CELL DISTRIBUTION WIDTH 14.5 % (11.0-15.5); WHITE BLOOD COUNT (AUTO) 10.7 K/uL (4.8-10.8)
[2023-07-12 18:33] LABS: ALBUMIN 2.5 g/dL (3.5-5.0); BILIRUBIN,TOTAL 0.7 mg/dL (0.2-1.0); CREATININE 1.6 mg/dL (0.5-1.3); POTASSIUM 4.2 mmol/L (3.5-5.1); TOTAL PROTEIN, SERUM 6.2 g/dL (6.0-8.3)
[2023-07-12] MEDS: IPRATROPIUM 0.5 MG/2.5 ML INH IH SCH (19:13)
[2023-07-13] VITALS (13 sets, daily range): BP systolic 113–139; BP diastolic 55–77; PULSE 73–89; RESP 18–23; O2SAT 95–96
[2023-07-13] MEDS ORDERED: VANCOMYCIN PROTOCOL PER PHARMACY IV SCH (07:30)
[2023-07-13 08:11] LABS: BASOPHILS # (AUTO) 0.04 K/uL (0.00-0.20); BASOPHILS % (AUTO) 0.4 % (0.0-5.0); EOSINOPHILS # (AUTO) 1.01 K/uL (0.00-0.70); EOSINOPHILS % (AUTO) 10.1 % (0.0-8.0); HEMATOCRIT 25.7 % (42-54); IMMATURE GRANULOCYTE ABSOLUTE 0.03 K/uL (0-1); LYMPHOCYTES # (AUTO) 1.8 K/uL (1.0-4.8); LYMPHOCYTES % (AUTO) 18.3 % (21.0-51.0); MEAN CORPUSCULAR HEMOGLOBIN 28.8 pg (27.0-33.0); MEAN CORPUSCULAR HGB CONC 32.7 g/dL (32.0-36.0); MONOCYTES # (AUTO) 0.8 K/uL (0.1-1.0); MONOCYTES % (AUTO) 7.9 % (3.0-13.0); NEUTROPHILS # (AUTO) 6.3 K/uL (1.8-7.7); PLATELET COUNT (AUTO) 192 K/uL (130-400); RED BLOOD CELL COUNT(AUTO) 2.92 MIL/uL (4.50-6.20); RED CELL DISTRIBUTION WIDTH 14.6 % (11.0-15.5)
[2023-07-13 08:31] LABS: ALBUMIN 2.6 g/dL (3.5-5.0); BILIRUBIN,TOTAL 0.8 mg/dL (0.2-1.0); CREATININE 1.4 mg/dL (0.5-1.3); POTASSIUM 3.6 mmol/L (3.5-5.1); TOTAL PROTEIN, SERUM 6.5 g/dL (6.0-8.3)
[2023-07-13] MEDS: CEFEPIME HCL 1 GM VIAL IVPB SCH (09:51)
[2023-07-13] MEDS: VANCOMYCIN 1.5 GM/250 ML BAG 250 ML IV SCH (10:42)
[2023-07-13] MEDS: AMITRIPTYLINE 25 MG TABLET PO ONE (13:26)
[2023-07-13] MEDS: METRONIDAZOLE 500MG/100ML BAG 100 ML IVPB SCH (13:26)
[2023-07-13 18:10] LABS: APPEARANCE,URINE CLEAR (CLEAR); BILIRUBIN,URINE NEGATIVE (NEGATIVE); COLOR,URINE COLORLESS (YELLOW); GLUCOSE, URINE (UA) NEGATIVE (NEGATIVE); KETONES,URINE NEGATIVE (NEGATIVE); LEUKOCYTE ESTERASE ,URINE NEGATIVE Leu/uL (NEGATIVE); NITRATE,URINE NEGATIVE (NEGATIVE); OCCULT BLOOD,URINE NEGATIVE (NEGATIVE); PROTEIN,URINE NEGATIVE (NEGATIVE); UROBILINOGEN,URINE 0.2 mg/dL (0.2-1.0)
[2023-07-13 18:11] LABS: ADD UA MICROSCOPIC YES
[2023-07-13 18:18] LABS: BACTERIA,URINE RARE /HPF (None Seen); MUCUS,URINE RARE LPF (None Seen); RBC,URINE 0-1 /HPF (0-1); SQUAMOUS EPITHELIAL CELL,UR RARE /HPF (0-2); WBC,URINE 0-1 /HPF (0-1)
[2023-07-13] MEDS: TRAMADOL HCL 50 MG TABLET PO PRN (19:43)
[2023-07-13] MEDS: AMITRIPTYLINE 25 MG TABLET PO SCH (22:03)
[2023-07-14] VITALS (16 sets, daily range): BP systolic 104–160; BP diastolic 59–77; PULSE 75–91; RESP 18–22; O2SAT 94–96
[2023-07-14] MEDS: OXYCODONE HCL 5 MG TAB PO PRN (01:39)
[2023-07-14 04:50] LABS: BASOPHILS # (AUTO) 0.04 K/uL (0.00-0.20); BASOPHILS % (AUTO) 0.4 % (0.0-5.0); EOSINOPHILS # (AUTO) 0.94 K/uL (0.00-0.70); EOSINOPHILS % (AUTO) 8.4 % (0.0-8.0); HEMATOCRIT 24.3 % (42-54); IMMATURE GRANULOCYTE ABSOLUTE 0.05 K/uL (0-1); LYMPHOCYTES # (AUTO) 1.7 K/uL (1.0-4.8); LYMPHOCYTES % (AUTO) 15.3 % (21.0-51.0); MEAN CORPUSCULAR HEMOGLOBIN 29.1 pg (27.0-33.0); MEAN CORPUSCULAR HGB CONC 32.1 g/dL (32.0-36.0); MEAN CORPUSCULAR VOLUME 90.7 fL (79-99); MONOCYTES % (AUTO) 8.9 % (3.0-13.0); NEUTROPHILS # (AUTO) 7.4 K/uL (1.8-7.7); NEUTROPHILS % (AUTO) 66.6 % (40.0-77.0); PLATELET COUNT (AUTO) 186 K/uL (130-400); RED BLOOD CELL COUNT(AUTO) 2.68 MIL/uL (4.50-6.20); RED CELL DISTRIBUTION WIDTH 14.6 % (11.0-15.5); WHITE BLOOD COUNT (AUTO) 11.1 K/uL (4.8-10.8)
[2023-07-14 05:13] LABS: ALBUMIN 2.3 g/dL (3.5-5.0); BILIRUBIN,TOTAL 0.8 mg/dL (0.2-1.0); CREATININE 1.4 mg/dL (0.5-1.3); POTASSIUM 3.9 mmol/L (3.5-5.1); TOTAL PROTEIN, SERUM 5.7 g/dL (6.0-8.3)
[2023-07-15] VITALS (7 sets, daily range): BP systolic 98–136; BP diastolic 56–71; PULSE 78–87; RESP 18–22; O2SAT 94–97
[2023-07-15 05:03] LABS: BASOPHILS # (AUTO) 0.04 K/uL (0.00-0.20); BASOPHILS % (AUTO) 0.4 % (0.0-5.0); EOSINOPHILS # (AUTO) 0.91 K/uL (0.00-0.70); EOSINOPHILS % (AUTO) 8.3 % (0.0-8.0); HEMATOCRIT 22.7 % (42-54); IMMATURE GRANULOCYTE ABSOLUTE 0.05 K/uL (0-1); LYMPHOCYTES % (AUTO) 18.2 % (21.0-51.0); MEAN CORPUSCULAR HGB CONC 32.6 g/dL (32.0-36.0); MONOCYTES # (AUTO) 0.9 K/uL (0.1-1.0); MONOCYTES % (AUTO) 7.8 % (3.0-13.0); NEUTROPHILS # (AUTO) 7.1 K/uL (1.8-7.7); NEUTROPHILS % (AUTO) 64.8 % (40.0-77.0); PLATELET COUNT (AUTO) 216 K/uL (130-400); RED BLOOD CELL COUNT(AUTO) 2.55 MIL/uL (4.50-6.20); RED CELL DISTRIBUTION WIDTH 14.8 % (11.0-15.5)
[2023-07-15 05:28] LABS: CREATININE 1.4 mg/dL (0.5-1.3); POTASSIUM 3.7 mmol/L (3.5-5.1)
[2023-07-15] MEDS: TRAMADOL HCL 50 MG TABLET PO PRN (12:25)
[2023-07-15] MEDS: FUROSEMIDE 20MG VIAL IV ONE (14:36)
== END 2023-07-15 17:00 | DRG 236 ==
LOC: DAHIP 07-07 07:22 → 2CV 07-07 16:43 → 2CH 07-09 05:44 → 2AH 07-10 17:22
PROVIDERS: ADMIT Thoracic Surgery (Cardiothoracic Vascular Surgery); ATTEND Thoracic Surgery (Cardiothoracic Vascular Surgery)
PROC: 02100Z9 Bypass Coronary Artery, One Artery from Left Internal Mammary, Open Approach (ICD-10-PCS; principal; 2023-07-07 15:52)
PROC: 021109W Bypass Coronary Artery, Two Arteries from Aorta with Autologous Venous Tissue, Open Approach (ICD-10-PCS; 2023-07-07 15:52)
PROC: 06BQ4ZZ Excision of Left Saphenous Vein, Percutaneous Endoscopic Approach (ICD-10-PCS; 2023-07-07 15:52)
PROC: 0PS000Z Reposition Sternum with Rigid Plate Internal Fixation Device, Open Approach (ICD-10-PCS; 2023-07-07 15:52)
DX: I25.10 Atherosclerotic heart disease of native coronary artery without angina pectoris (principal); D62 Acute posthemorrhagic anemia; E44.1 Mild protein-calorie malnutrition; I13.0 Hypertensive heart and chronic kidney disease with heart failure and stage 1 through stage 4 chronic kidney disease, or unspecified chronic kidney disease; J98.11 Atelectasis; N17.9 Acute kidney failure, unspecified; I31.39 Other pericardial effusion (noninflammatory); E11.22 Type 2 diabetes mellitus with diabetic chronic kidney disease; E66.9 Obesity, unspecified; E78.00 Pure hypercholesterolemia, unspecified; E83.51 Hypocalcemia; E87.6 Hypokalemia; G47.33 Obstructive sleep apnea (adult) (pediatric); I50.9 Heart failure, unspecified; N18.30 Chronic kidney disease, stage 3 unspecified; Z79.82 Long term (current) use of aspirin; Z79.899 Other long term (current) drug therapy; Z95.5 Presence of coronary angioplasty implant and graft; Z68.32 Body mass index [BMI] 32.0-32.9, adult
CPT/HCPCS: 36415; 36600; 71045; 71250; 80048; 80053; 80061; 80202; 81001; 82330; 82435; 82803; 82947; 82948; 83036; 83605; 83735; 83880; 84100; 84132; 84295; 85018; 85025; 85027; 85347; 85610; 85730; 86850; 86900; 86901; 86923; 87040; 87071; 87077; 87186; 87205; 87641; 93005; 93312; 93880; 94002; 94003; 94010; 94150; 94640; 94660; 94664; 94667; 94668; A7048; G0378; J0171; J0612; J0690; J0692; J1644; J1650; J1815; J1940; J2001; J2250; J2270; J2405; J2440; J2704; J2720; J3010; J3475; J3480; J3490; J7030; J7040; P9045; A4315; A4452; A4649; A4930; A6204; A6219; A6260; C1713; C1776; C1887; G0168; J3370

== ENCOUNTER → 2023-10-28 | Outpatient (CLI) | payer OTHER, MEDICARE ==
[~2023-10-28] MED LIST changes: -ASPI-1012 PO; -ATOR20TA65 PO; -INSLAN SQ; -METO-408 PO; -OXYC10TA48 PO; -TELM1TAB PO
[2023-10-28 16:19] LABS: BASOPHILS # (AUTO) 0.08 K/uL (0.00-0.20); BASOPHILS % (AUTO) 0.8 % (0.0-5.0); EOSINOPHILS # (AUTO) 0.47 K/uL (0.00-0.70); HEMATOCRIT 34.5 % (42-54); IMMATURE GRANULOCYTE ABSOLUTE 0.02 K/uL (0-1); LYMPHOCYTES % (AUTO) 20.9 % (21.0-51.0); MEAN CORPUSCULAR HEMOGLOBIN 25.1 pg (27.0-33.0); MEAN CORPUSCULAR HGB CONC 30.4 g/dL (32.0-36.0); MEAN CORPUSCULAR VOLUME 82.3 fL (79-99); MONOCYTES # (AUTO) 0.8 K/uL (0.1-1.0); MONOCYTES % (AUTO) 8.2 % (3.0-13.0); NEUTROPHILS # (AUTO) 6.1 K/uL (1.8-7.7); NEUTROPHILS % (AUTO) 64.9 % (40.0-77.0); PLATELET COUNT (AUTO) 197 K/uL (130-400); RED BLOOD CELL COUNT(AUTO) 4.19 MIL/uL (4.50-6.20); RED CELL DISTRIBUTION WIDTH 16.2 % (11.0-15.5); WHITE BLOOD COUNT (AUTO) 9.4 K/uL (4.8-10.8)
[2023-10-28 16:52] LABS: ALBUMIN 3.4 g/dL (3.5-5.0); BILIRUBIN,TOTAL 0.4 mg/dL (0.2-1.0); CREATININE 1.7 mg/dL (0.5-1.3); POTASSIUM 4.1 mmol/L (3.5-5.1); TOTAL PROTEIN, SERUM 7.6 g/dL (6.0-8.3)
== END | disposition home or self-care (01) ==
LOC: LAB 15:47
PROVIDERS: ATTEND Physician Assistant
DX: I10 Essential (primary) hypertension (principal)
CPT/HCPCS: 36415; 80053; 83735; 83880; 85025

== ENCOUNTER → 2024-08-15 | Outpatient (CLI) | payer OTHER, MEDICARE ==
[~2024-08-15] MED LIST changes: -TAMS-1 PO; +TAMS-55 PO
[2024-08-15 22:19] VITALS: PULSE 75; RESP 12
[2024-08-15 22:54] VITALS: PULSE 63; RESP 12
[2024-08-15 23:29] VITALS: PULSE 67; RESP 12
[2024-08-16] VITALS (11 sets, daily range): PULSE 61–85; RESP 10–12
--- NOTE | 2024-08-16 00:11 | NUR ---
CURRENT MEDICATIONS LIST: SUSAN, LANTUS, OXYKCODONE, ATORVASTATIN, METOPROLOL , ELMRS, ANLOPIP, DTASTERIDE , LUBIPROSTONE, MEATAMUCIL Addendum: 08/16/24 at 0013 by VINICIO HE Amended: Links added.
== END | disposition home or self-care (01) ==
LOC: SLP 20:20
PROVIDERS: ATTEND Internal Medicine Cardiovascular Disease
DX: G47.33 Obstructive sleep apnea (adult) (pediatric) (principal); R06.83 Snoring; R03.0 Elevated blood-pressure reading, without diagnosis of hypertension; E66.9 Obesity, unspecified
CPT/HCPCS: 95810

== ENCOUNTER → 2024-08-19 | Outpatient (CLI) | payer OTHER, MEDICARE ==
[2024-08-19 22:28] VITALS: PULSE 64; RESP 14
[2024-08-19 23:00] VITALS: PULSE 60; RESP 8
[2024-08-19 23:30] VITALS: PULSE 58; RESP 6
[2024-08-20] VITALS (9 sets, daily range): PULSE 54–58; RESP 4–18
== END | disposition home or self-care (01) ==
LOC: SLP 19:51
PROVIDERS: ATTEND Internal Medicine Cardiovascular Disease
DX: G47.33 Obstructive sleep apnea (adult) (pediatric) (principal); R06.83 Snoring; R03.0 Elevated blood-pressure reading, without diagnosis of hypertension; E66.9 Obesity, unspecified
CPT/HCPCS: 95811